=== PATIENT | female | born 1950 | race Caucasian/White ===

== ENCOUNTER 2017-04-18 07:42 | Outpatient (CLI) | payer OTHER, MEDICARE ==
[2017-04-18] MEDS ORDERED: DIATR MEGLU/DIATRIZ SOD 30 ML SOLUTION PO ONE (07:56)
[2017-04-18] MEDS ORDERED: IOHEXOL 100 ML IV ONE (09:15)
== END 2017-04-18 19:57 | disposition home or self-care (01) ==
LOC: SCT 07:42
PROVIDERS: ATTEND Specialist
DX: K57.30 Diverticulosis of large intestine without perforation or abscess without bleeding (principal); I70.0 Atherosclerosis of aorta; Z90.49 Acquired absence of other specified parts of digestive tract; T83.8 Other specified complications of genitourinary prosthetic devices, implants and grafts; T83.711D Erosion of implanted vaginal mesh to surrounding organ or tissue, subsequent encounter
CPT/HCPCS: 74177; Q9964; Q9967